=== PATIENT | female | born 1980 | race Caucasian/White ===

== ENCOUNTER 2018-09-08 07:56 | Emergency (ER) | payer BC, OTHER ==
[2018-09-08] MEDS ORDERED: Ondansetron INJ* 2 MG/ML VIAL IV ONE ×2 (08:51→11:11)
[2018-09-08] MEDS ORDERED: NS 0.9% 1000 ML** 1,000 ML IV ONE (08:51)
--- NOTE | 2018-09-08 08:54 | ED ---
Abdominal Pain/Female - HPI Summary HPI Summary: A 38 y/o female presents to [facility] with a chief complaint of abdominal pain intermittently for the past three days. At triage she rated her pain as a 3/10 in severity. She notes that her pain is worse in her RUQ. She also c/o Nausea and diarrhea. She describes her diarrhea as a little bit of loose stool. She denies vomiting today although she reports that it feels like she wants to throw up and that she vomited three days ago. She reports that she has been on a light diet. She woke up with a severe pain, but the pain has gotten better. She reports that she has not urinated much. She reports that she has a control implant. She denies any SHx. Vital signs while in room HR: 64 bpm, O2 Sat: 99, BP:123/81 - History of Current Complaint Chief Complaint: EDAbdPain Stated Complaint: "VOMITING SENSE WEDNESDAY,HAS PAIN AND NAUSEA" PER PT Time Seen by Provider: 09/08/18 08:17 Hx Obtained From: Patient Hx Last Menstrual Period: implant - Onset/Duration: Sudden Onset, Lasting Days, Still Present Timing: Days Severity Initially: Mild Severity Currently: Mild Pain Intensity: 3 Pain Scale Used: 0-10 Numeric Location: Diffuse - worse in RUQ Radiates: No Character: Other: - Unable to describe Aggravating Factor(s): Nothing Alleviating Factor(s): Nothing Associated Signs and Symptoms: Positive: Nausea, Vomiting - 3 days ago, Diarrhea. Negative: Fever Allergies/Adverse Reactions: Allergies Allergy/AdvReac Type Severity Reaction Status Date / Time celecoxib [From Celebrex] Allergy Hives/Diff. Verified 09/08/18 08:18 Breathing/I tching Sulfa (Sulfonamide Allergy Vomiting Verified 09/08/18 08:18 Antibiotics) PMH/Surg Hx/FS Hx/Imm Hx Cardiovascular History: Denies: Hx Pacemaker/ICD Sensory History: Denies: Hx Hearing Aid Psychiatric History: Denies: Hx Panic Disorder - Surgical History Surgery Procedure, Year, and Place: 2009 -VOCAL CYST REMOVED; - Immunization History Immunizations Up to Date: Yes Infectious Disease History: No Infectious Disease History: Denies: History Other Infectious Disease, Traveled Outside the [place] in Last 30 Days - Family History Known Family History: Negative: Blood Disorder - Social History Alcohol Use: Occasionally Alcohol Amount: 3-4x's a week Substance Use Type: Reports: None Smoking Status (MU): Former Smoker Length of Time of Smoking/Using Tobacco: 10 years ago quit Have You Smoked in the Last Year: No Review of Systems Negative: Fever Positive: Abdominal Pain, Vomiting - 3 days ago but not today, Diarrhea Positive: other - Positive: decreased urinary frequency All Other Systems Reviewed And Are Negative: Yes Physical Exam - Summary Physical Exam Summary: Appearance: The patient is well-nourished in no acute distress and in no acute pain. Skin: The skin is warm and dry and skin color reflects adequate perfusion. HEENT: The head is normocephalic and atraumatic. The pupils are equal and reactive. The conjunctivae are clear and without drainage. Nares are patent and without drainage. Mouth reveals moist mucous membranes and the throat is without erythema and exudate. The external ears are intact. The ear canals are patent and without drainage. The tympanic membranes are intact. Neck: The neck is supple with full range of motion and non-tender. There are no carotid bruits. There is no neck vein distension. Respiratory: Chest is non-tender. Lungs are clear to auscultation and breath sounds are symmetrical and equal. Cardiovascular: Heart is regular rate and rhythm. There is no murmur or rub auscultated. There is no peripheral edema and pulses are symmetrical and equal. Abdomen: Diffuse mild abdominal tenderness, worse in the RUQ. There are normal bowel sounds heard in all four quadrants and there is no organomegaly palpated. Musculoskeletal: There is no back tenderness noted. Extremities are non-tender with full range of motion. There is good capillary refill. There is no peripheral edema or calf tenderness elicited. Neurological: Patient is alert and oriented to person, place and time. The patient has symmetrical motor strength in all four extremities. Cranial nerves are grossly intact. Deep tendon reflexes are symmetrical and equal in all four extremities. Psychiatric: The patient has an appropriate affect and does not exhibit any anxiety or depression. Triage Information Reviewed: Yes Vital Signs On Initial Exam: Initial Vitals Temp Pulse Resp BP Pulse Ox 97.7 F 80 20 131/88 100 09/08/18 07:59 09/08/18 07:59 09/08/18 07:59 09/08/18 07:59 09/08/18 07:59 Vital Signs Reviewed: Yes Diagnostics - Vital Signs Vital Signs Temp Pulse Resp BP Pulse Ox 09/08/18 07:59 97.7 F 80 20 131/88 100 - Laboratory Result Diagrams: 09/08/18 10:20 09/08/18 10:20 Lab Statement: Any lab studies that have been ordered have been reviewed, and results considered in the medical decision making process. - Ultrasound No standard instances Ultrasound Interpretation Completed By: Radiologist Summary of Ultrasound Findings: Gallbladder ultrasound impression: No evidence of cholelithiasis or biliary duct dilatation is noted. ED physician has reviewed this imaging report. Re-Evaluation - Re-Evaluation First Eval Re-Evaluation Time: 12:08 Change: Improved Comment: Discussed results and discharge Abdominal Pain Fem Course/Dx - Course Course Of Treatment: Ms. Lau presented complaining of 3 days of intermittent right upper quadrant pain accompanied by loose stools, nausea and vomiting. She was nontoxic in appearance on arrival with stable vital signs. She did have right upper quadrant tenderness but had diffuse tenderness as well. Her labs were unremarkable. It seems likely this is a viral gastroenteritis. I will treat her symptomatically and encourage close follow- up. - Diagnoses Provider Diagnoses: Gastroenteritis Discharge - Sign-Out/Discharge Documenting (check all that apply): Patient Departure - DC Patient Received Moderate/Deep Sedation with Procedure: No - Discharge Plan Condition: Stable Disposition: HOME Prescriptions: Ondansetron ODT TAB* [Zofran Odt TAB*] 4 mg PO Q6H PRN #20 tab.odt PRN Reason: Nausea/Vomiting Patient Education Materials: Gastroenteritis (DC) Referrals: [facility] [Outside] (2-3 days) Additional Instructions: Return to the ED if you experience any new or worsening symptoms. - Billing Disposition and Condition Condition: STABLE Disposition: Home - Attestation Statements Document Initiated by Scribe: Yes Documenting Scribe: Humberto Casillas Provider For Whom Irma is Documenting (Include Credential): Cayden Alvarez MD Scribe Attestation: Humberto Merritt, scribed for Cayden Alvarez MD on 09/08/18 at 1509. Scribe Documentation Reviewed: Yes Provider Attestation: The documentation as recorded by the Humberto lao accurately reflects the service I personally performed and the decisions made by me, Cayden Alvarez MD Status of Scribe Document: Viewed
[2018-09-08 09:36] LABS: Urine Appearance Cloudy; Urine Bacteria Absent (Absent); Urine Bilirubin Negative (Negative); Urine Blood 1+ (Negative); Urine Color Yellow; Urine Glucose Negative (Negative); Urine Ketones Trace (Negative); Urine Nitrite Negative (Negative); Urine Protein Negative (Negative); Urine Red Blood Cell Trace(0-2/hpf) (Absent); Urine Squamous Epithelial Cell Present (Absent); Urine Urobilinogen Negative (Negative); Urine White Blood Cell Trace(0-5/hpf) (Absent)
[2018-09-08 10:36] LABS: ABS Basophils 0 10^3/ul (0-0.2); ABS Eosinophils 0 10^3/ul (0-0.6); ABS Monocytes 0.5 10^3/ul (0-0.8); ABS Neutrophils 2.1 10^3/ul (1.5-7.7); ABS Nucleated RBC 0 10^3/ul; Eosinophil % 0.1 %; Hematocrit 40 % (33-41); Hemoglobin 13.4 g/dL (12.0-16.0); Lymphocyte % 27.6 %; Mean Corpuscular HGB Conc 34 g/dL (31-36); Mean Corpuscular Hemoglobin 32 pg (27-31); Mean Corpuscular Volume 93 fL (80-97); Mean Platelet Volume 8.1 fL (7.4-10.4); Nucleated Red Blood Cells % 0.2; Platelet Count 215 10^3/uL (150-450); Red Blood Count 4.26 10^6 /uL (3.70-4.87); Red Cell Distribution Width 13 % (10.5-15); White Blood Count 3.6 10^3/uL (3.5-10.8)
[2018-09-08 11:01] LABS: ALT 17 U/L (7-52); AST 19 U/L (13-39); Albumin 4.3 g/dL (3.2-5.2); Alkaline Phosphatase 48 U/L (34-104); Anion Gap 7 mmol/L (2-11); BUN/Creatinine Ratio 12.3 (8-20); Blood Urea Nitrogen 9 mg/dL (6-24); C Reactive Protein 3.64 mg/L (<8.01); CO2 Carbon Dioxide 22 mmol/L (22-32); Calcium 8.3 mg/dL (8.6-10.3); Chloride 108 mmol/L (101-111); EGFR African American 107.4 (>60); EGFR Non-African American 88.8 (>60); Globulin 2.1 g/dL (2-4); Glucose 86 mg/dL (70-100); Sodium 137 mmol/L (135-145); Total Protein 6.4 g/dL (6.4-8.9)
[2018-09-08 11:03] LABS: HCG Pregnancy < 0.60 mIU/mL
[2018-09-08 12:17] VITALS: BP 122/73
== END 2018-09-08 12:28 | disposition home or self-care (01) ==
LOC: ED 07:56
DX: K52.9 Noninfective gastroenteritis and colitis, unspecified (principal); Z88.2 Allergy status to sulfonamides; Z88.8 Allergy status to other drugs, medicaments and biological substances; Z87.891 Personal history of nicotine dependence
CPT/HCPCS: 36415; 76705; 80053; 81003; 81015; 83605; 83690; 84702; 85025; 86140; 87086; 96361; 96374; 96376; 99283; J2405